=== PATIENT | female | born 1940 ===

== ENCOUNTER 2021-01-28 08:49 | Inpatient (IN) ==
[~2021-01-28 08:49] MED LIST: Buffered Lidocaine 1% SYRIN 1 ml INTRADERM ONE; Famotidine IV 10 MG/ML 2 ml VIAL (20 mg) IV ONE; Lactated Ringers 1000 ml BAG 1,000 ML IV SCH
[2021-01-28] MEDS ORDERED: Propofol 10 MG/ML 20 ML BTL ONE ×3 (08:53→12:28)
[2021-01-28] MEDS ORDERED: Ondansetron 4 mg VIAL 2 MG/ML 2 ml VIAL ONE (08:53)
[2021-01-28] MEDS ORDERED: Lidocaine 2% PF 5 ML VIAL ONE (08:54)
[2021-01-28] MEDS ORDERED: Ketamine HCL 50 mg/ml 10 ml VIAL (500 MG) ONE (08:57)
[2021-01-28] MEDS ORDERED: Midazolam 2 mg/2 ml VIAL 1 mg/ml 2 ml VIAL (2 mg) ONE ×2 (08:58→11:09)
[2021-01-28] MEDS ORDERED: ceFAZolin 2 GM PREMIX 2 GM/50 ML BAG ONE (09:26)
[2021-01-28] MEDS ORDERED: Buffered Lidocaine 1% SYRIN 1 ml INTRADERM ONE (09:26)
[2021-01-28] MEDS ORDERED: Famotidine IV 10 MG/ML 2 ml VIAL (20 mg) ONE (09:26)
[2021-01-28] MEDS ORDERED: Bupivacaine 0.5% SDV PF 30ML VIAL ONE (10:11)
[2021-01-28] MEDS ORDERED: Lidocaine 1% MPF 5 ML VIAL ONE (10:30)
[2021-01-28] MEDS ORDERED: Ropivacaine (OR use only) 2 MG/ML 10 ML ONE (10:30)
[2021-01-28] MEDS ORDERED: Ropivacaine 5 MG/ML 20 ML VIAL 0.5% (100 MG) ONE ×2 (10:33→10:38)
[2021-01-28] MEDS ORDERED: Glycopyrrolate IV 0.2 MG/ML 1 ML VIAL ONE ×2 (11:43→13:04)
[2021-01-28] MEDS ORDERED: Naloxone 0.4 mg VIAL 0.4 mg/ml 1 ml VIAL IV PRN (11:46)
[2021-01-28] MEDS ORDERED: DiMENhydriNATE IV 50 mg/ml 1 ml VIAL IV PUSH PRN (11:46)
[2021-01-28] MEDS ORDERED: HYDROmorphone 1 MG/1 ML SYRINGE IV PRN (11:46)
[2021-01-28] MEDS ORDERED: diPHENhydraMINE IV 50 MG/ML 1 ml VIAL (BENADRYL) IV PRN (12:23)
[2021-01-28] MEDS ORDERED: diPHENhydraMINE 25 mg TAB PO PRN (12:23)
[2021-01-28] MEDS ORDERED: Ondansetron 4 mg VIAL 2 MG/ML 2 ml VIAL IV PRN (12:23)
[2021-01-28] MEDS ORDERED: Morphine 2 MG/ML SYRINGE IV PRN (12:23)
[2021-01-28] MEDS ORDERED: Lactulose 30 ml UDC PO PRN (12:23)
[2021-01-28] MEDS ORDERED: Ondansetron ODT 4 mg TAB 4 MG TAB PO PRN (12:23)
[2021-01-28] MEDS ORDERED: Magnesium Hydroxide LIQ 30 ML UDC PO PRN (12:23)
[2021-01-28] MEDS: Lactated Ringers 1000 ml BAG 1,000 ML IV SCH (15:38)
[2021-01-28] MEDS: ceFAZolin 1 GM ADVAN 1 GM in NS 0.9% 50 ML 50 ML IVPB SCH (20:08)
[2021-01-28] MEDS: Magnesium Hydroxide LIQ 30 ML UDC PO SCH (20:18)
[2021-01-29] MEDS: Lactated Ringers 1000 ml BAG 1,000 ML IV SCH (00:47)
[2021-01-29] MEDS: ceFAZolin 1 GM ADVAN 1 GM in NS 0.9% 50 ML 50 ML IVPB SCH ×2 (03:41→11:33)
[2021-01-29 05:14] LABS: Hematocrit 38 % (35-47); Hemoglobin 12.9 g/dL (12.0-16.0); Mean Platelet Volume 8.1 fL (7.4-10.4); Platelet Count 300 10^3/uL (150-450)
[2021-01-29 05:27] LABS: BUN/Creatinine Ratio 26.4 (8-20); Calcium 8.9 mg/dL (8.6-10.3); EGFR Non-African American 62.8 (>60); Potassium 4.2 mmol/L (3.5-5.0)
[2021-01-29] MEDS: Magnesium Hydroxide LIQ 30 ML UDC PO SCH (08:55)
[2021-01-29] MEDS ORDERED: Lisinopril/HCTZ 20/12.5 TB(NF) PO SCH (09:00)
[2021-01-29] MEDS ORDERED: Vitamin THERAPEUTIC TAB PO SCH (09:00)
[2021-01-29 11:24] VITALS: BP 150/50
[2021-01-29 12:59] LABS: Magnesium 1.9 mg/dL (1.9-2.7)
== END 2021-01-29 13:45 | disposition home health service (06) | DRG 470 ==
LOC: AA 08:49 → SSU 15:34
PROVIDERS: ADMIT Orthopaedic Surgery Adult Reconstructive Orthopaedic Surgery; ATTEND Orthopaedic Surgery Adult Reconstructive Orthopaedic Surgery

== ENCOUNTER 2021-05-06 06:40 | Observation (INO) ==
[~2021-05-06 06:40] MED LIST changes: -Famotidine IV 10 MG/ML 2 ml VIAL (20 mg) IV ONE
[2021-05-06] MEDS ORDERED: ceFAZolin 2 GM PREMIX 2 GM/50 ML BAG ONE (06:44)
[2021-05-06] MEDS ORDERED: Lidocaine 2% PF 5 ML VIAL ONE (07:22)
[2021-05-06] MEDS ORDERED: Dexmedetomidine 200 mcg/2 ml 2 ml VIAL (200 mcg) ONE (08:22)
[2021-05-06] MEDS ORDERED: Midazolam 2 mg/2 ml VIAL 1 mg/ml 2 ml VIAL (2 mg) ONE (08:33)
[2021-05-06] MEDS ORDERED: fentaNYL 100 mcg/2 ml 50 MCG/ML VIAL ONE (08:33)
[2021-05-06] MEDS ORDERED: Dexamethasone IV 4 MG/ML VIAL 1 ml VIAL ONE ×2 (08:34→09:48)
[2021-05-06] MEDS ORDERED: ROPIVACAINE 5 MG/ML 30 ML BTL (0.5%) ONE (08:34)
[2021-05-06] MEDS ORDERED: Ropivacaine 5 MG/ML 20 ML VIAL 0.5% (100 MG) ONE (08:48)
[2021-05-06] MEDS ORDERED: Lactulose 30 ml UDC PO PRN (09:22)
[2021-05-06] MEDS ORDERED: Morphine 2 MG/ML SYRINGE IV PRN (09:22)
[2021-05-06] MEDS ORDERED: Ondansetron ODT 4 mg TAB 4 MG TAB PO PRN (09:22)
[2021-05-06] MEDS ORDERED: diPHENhydraMINE IV 50 MG/ML 1 ml VIAL (BENADRYL) IV PRN (09:22)
[2021-05-06] MEDS ORDERED: diPHENhydraMINE 25 mg TAB PO PRN (09:22)
[2021-05-06] MEDS ORDERED: Ondansetron 4 mg VIAL 2 MG/ML 2 ml VIAL IV PRN ×2 (09:22→09:36)
[2021-05-06] MEDS ORDERED: Polyethylene Glycol 3350 17 GM PACKET PO PRN (09:22)
[2021-05-06] MEDS ORDERED: Magnesium Hydroxide LIQ 30 ML UDC PO PRN (09:22)
[2021-05-06] MEDS ORDERED: Glycopyrrolate IV 0.2 MG/ML 1 ML VIAL ONE ×2 (09:33→09:40)
[2021-05-06] MEDS ORDERED: oxyCODONE/Acetamin 5/325 mg TAB PO PRN (09:36)
[2021-05-06] MEDS ORDERED: fentaNYL 100 mcg/2 ml 50 MCG/ML VIAL IV PRN (09:36)
[2021-05-06] MEDS ORDERED: DiMENhydriNATE IV 50 mg/ml 1 ml VIAL IV PUSH PRN (09:36)
[2021-05-06] MEDS ORDERED: Naloxone 0.4 mg VIAL 0.4 mg/ml 1 ml VIAL IV PRN (09:36)
[2021-05-06] MEDS ORDERED: EPHEDrine (Pressors) 50 MG/ML VIAL ONE (09:46)
[2021-05-06] MEDS ORDERED: Ondansetron 4 mg VIAL 2 MG/ML 2 ml VIAL ONE (09:48)
[2021-05-06] MEDS ORDERED: Lactated Ringers 1000 ml BAG 1,000 ML IV SCH (10:00)
[2021-05-06] MEDS ORDERED: oxyCODONE/Acetamin 5/325 mg TAB ONE (14:14)
[2021-05-06] MEDS: ceFAZolin 1 GM ADVAN 1 GM in NS 0.9% 50 ML 50 ML IVPB SCH (16:32)
[2021-05-06] MEDS: Dextran 70/Hypromellose Tears Eye Drops 15 ml BTL (for Artificials Tears) BOTH EYES SCH ×2 (17:14→22:37)
[2021-05-06] MEDS: Magnesium Hydroxide LIQ 30 ML UDC PO SCH (21:42)
[2021-05-07] MEDS: ceFAZolin 1 GM ADVAN 1 GM in NS 0.9% 50 ML 50 ML IVPB SCH ×2 (01:14→09:32)
[2021-05-07 06:27] LABS: Hematocrit 34 % (35-47); Hemoglobin 11.3 g/dL (12.0-16.0); Mean Platelet Volume 8.4 fL (7.4-10.4); Platelet Count 305 10^3/uL (150-450)
[2021-05-07 06:47] LABS: Calcium 8.9 mg/dL (8.6-10.3); EGFR African American 72.9 (>60); EGFR Non-African American 60.2 (>60); Potassium 4.2 mmol/L (3.5-5.0)
[2021-05-07] MEDS: Dextran 70/Hypromellose Tears Eye Drops 15 ml BTL (for Artificials Tears) BOTH EYES SCH ×2 (07:42→12:19)
[2021-05-07] MEDS: Magnesium Hydroxide LIQ 30 ML UDC PO SCH (07:43)
[2021-05-07] MEDS ORDERED: Vitamin THERAPEUTIC TAB PO SCH (09:00)
[2021-05-07 12:16] VITALS: BP 138/53
== END 2021-05-07 13:40 | disposition home or self-care (01) ==
LOC: INTOOBSV 06:40 → AA 06:40 → SSU 09:22
PROVIDERS: ADMIT Orthopaedic Surgery Adult Reconstructive Orthopaedic Surgery; ATTEND Orthopaedic Surgery Adult Reconstructive Orthopaedic Surgery